=== PATIENT | female | born 2000 | race Two or more races ===

== ENCOUNTER → 2025-07-27 | Emergency (ER) | payer OTHER ==
[~2025-07-27] VITALS: Ht 172.7 cm; Wt 72.6 kg
[~2025-07-27] MED LIST: ACETAMINOPHEN 500 MG GEL..CAP PO ONE; ANTICONCEPTIVOS; DEXAMETHASONE SODIUM PHOSPHATE 4 MG/ML VIAL IM ONE; NO TOMA MED.; TYLENOL32 MG/ML
[2025-07-27 22:00] LABS: BASO % 0.6 % (0.1-1.2); EOS # 0.57 (0.04-0.54); EOS % 4.5 % (0.7-7.0); LYMPH # 3.20 (1.18-3.74); LYMPH % 25.4 % (19.3-53.1); MEAN PLATELET VOLUME 10.40 fl (9.4-12.4); MONO # 0.92 (0.24-0.82); MONO % 7.3 % (4.7-12.5); NEUT # 7.81 (1.56-6.13); NEUT % 61.9 % (34.0-71.1); RED CELL DISTRIBUTION WIDTH 12.5 % (11.6-14.4)
[2025-07-27 22:30] LABS: ALT/SGPT 25.0 U/L (12-78); AST/SGOT 19.0 U/L (15-37); BILIRUBIN TOTAL 0.2 mg/dL (0.3-1.2); BUN CREA RATIO 20.0 (7.0-25.0); CREATININE SERUM 0.82 mg/dL (0.55-1.02); GFR 87.17; GLOBULINA 3.7 G/DL (2.4-3.5); GLUCOSE FASTING 83.0 mg/dL (65-100); OSMOLALITY SERUM 283.0 MOSM/KG (275-295)
== END | disposition left against medical advice (07) ==
LOC: ER 19:07
PROVIDERS: Student in an Organized Health Care Education/Training Program
DX: R51.9 Headache, unspecified (principal)